=== PATIENT | male | born 1990 ===

== ENCOUNTER 2021-07-19 19:11 | Emergency (ER) | payer SELFPAY ==
[~2021-07-19] VITALS: Ht 175.3 cm; Wt 95.2 kg
== END 2021-07-19 20:45 | disposition home or self-care (01) ==
LOC: ER 19:11
DX: K02.9 Dental caries, unspecified (principal)
CPT/HCPCS: 96372; 99282-25; J1885

== ENCOUNTER 2023-01-30 05:19 | Emergency (ER) | payer SELFPAY ==
[~2023-01-30] VITALS: Ht 175.3 cm; Wt 99.8 kg
[2023-01-30] MEDS ORDERED: PRED20 PO (05:29)
[2023-01-30] MEDS ORDERED: ALBU90OI INH (05:29)
[2023-01-30 06:19] VITALS: BP 117/90
[2023-01-30] MEDS ORDERED: DEXA2 PO (06:58)
[2023-01-30] MEDS ORDERED: Nicoderm Cq1 EACH TOP (06:59)
== END 2023-01-30 07:34 | disposition home or self-care (01) ==
LOC: ER 05:19
DX: J45.901 Unspecified asthma with (acute) exacerbation (principal); F17.210 Nicotine dependence, cigarettes, uncomplicated; Z79.52 Long term (current) use of systemic steroids; Z79.899 Other long term (current) drug therapy
CPT/HCPCS: 71045; 94644; 94664; J1100